=== PATIENT | male | born 1985 | race Hispanic/Latino ===

== ENCOUNTER 2018-09-23 21:38 | Emergency (ER) | payer SELFPAY ==
[2018-09-23] MEDS ORDERED: HYDROCODONE/APAP 10/325 TAB ONE (22:42)
--- NOTE | 2018-09-23 22:46 | ER ---
Nurse's Notes [facility] Name: Brandin John Jr Age: 32 yrs Sex: Male : 1985 Arrival Date: 09/23/2018 Time: 21:38 Bed 26 Private MD: Diagnosis: Contusion of lower back and pelvis-Tailbone Presentation: 09/23 21:45 Presenting complaint: Patient states: I fell on my tailbone on and the pain is la1 getting worse, pt ambulatory to triage. Transition of care: patient was not received from another setting of care. Onset of symptoms was September 23, 2018. Risk Assessment: Do you want to hurt yourself or someone else? Patient reports no desire to harm self or others. Initial Sepsis Screen: Does the patient meet any 2 criteria? No. Patient's initial sepsis screen is negative. Does the patient have a suspected source of infection? No. Patient's initial sepsis screen is negative. Care prior to arrival: None. 21:45 Method Of Arrival: Ambulatory la1 21:45 Acuity: KWESI 4 la1 Historical: - Allergies: 21:45 No Known Allergies; la1 - PMHx: 21:45 None; la1 - Immunization history:: Adult Immunizations up to date. - Social history:: Smoking status: Patient uses tobacco products, denies chronic smoking, but will smoke occasionally. - Ebola Screening: : No symptoms or risks identified at this time. Screenin:30 Abuse screen: Denies threats or abuse. Denies injuries from another. Nutritional rv screening: No deficits noted. Tuberculosis screening: No symptoms or risk factors identified. Fall Risk None identified. Assessment: 22:28 General: Appears in no apparent distress. uncomfortable, Behavior is calm, cooperative. rv Pain: Complains of pain in sacrum Pain does not radiate. Pain at worst was 8 out of 10 on a pain scale. Neuro: Level of Consciousness is awake, alert, obeys commands, Oriented to person, place, time, situation. Cardiovascular: Patient's skin is warm and dry. Respiratory: Airway is patent. GI: No signs and/or symptoms were reported involving the gastrointestinal system. : No signs and/or symptoms were reported regarding the genitourinary system. EENT: No signs and/or symptoms were reported regarding the EENT system. Derm: Skin is intact. Musculoskeletal: Reports pain in sacrum. Vital Signs: 21:46 BP 148 / 79; Pulse 88; Resp 16; Temp 97.4; Pulse Ox 98% on R/A; Weight 90.72 kg; Height la1 5 ft. 7 in. (170.18 cm); 22:54 BP 136 / 81; Pulse 81; Resp 18; Temp 97.7; Pulse Ox 99% ; rv 21:46 Body Mass Index 31.32 (90.72 kg, 170.18 cm) la1 ED Course: 21:38 Patient arrived in ED. as 21:45 Triage completed. la1 21:46 Dino Borden NP is PHCP. pm1 21:46 Arm band placed on right wrist. la1 21:47 Hadley Jimenez MD is Attending Physician. pm1 22:01 Kb Benavides RN is Primary Nurse. rv 22:24 Sacrum And Coccyx XRAY In Process Unspecified. EDMS 22:30 Patient has correct armband on for positive identification. Bed in low position. Call rv light in reach. Side rails up X 1. Adult w/ patient. Pulse ox on. NIBP on. 22:55 No provider procedures requiring assistance completed. Patient did not have IV access rv during this emergency room visit. Administered Medications: 22:28 Drug: [place] 10 mg-325 mg 1 tabs Route: PO; rv 22:54 Follow up: Response: Pain is decreased rv Outcome: 22:45 Discharge ordered by MD. pm1 22:55 Discharged to home ambulatory. rv 22:55 Condition: good 22:55 Discharge instructions given to patient, Instructed on discharge instructions, follow up and referral plans. medication usage, Demonstrated understanding of instructions, follow-up care, medications, Prescriptions given X 1. 22:55 Patient left the ED. rv Signatures: Dispatcher [employer] EDMS Carolyn Phillips Lee RN RN la1 Dino Borden, JULIAN ONE PIECE EXPANSION MAKER HAND pm1 Kb Benavides, EDUARDO RN rv
--- NOTE | 2018-09-23 22:46 | EDPHYS ---
Physician Documentation [facility] Name: Brandin John Jr Age: 32 yrs Sex: Male : 1985 Arrival Date: 09/23/2018 Time: 21:38 Bed 26 Private MD: ED Physician Hadley Jimenez HPI: 09/23 22:10 This 32 yrs old Male presents to ER via Ambulatory with complaints of Tailbone pm1 Pain. 22:10 The patient presents with pain that is acute. The symptoms are located in the coccyx pm1 area. The pain does not radiate. The problem was sustained during a fall, while walking. Onset: The symptoms/episode began/occurred yesterday. Modifying factors: The patient symptoms are alleviated by nothing, the patient symptoms are aggravated by movement, sitting. Associated signs and symptoms: Pertinent negatives: fever, incontinence, nausea, numbness, tingling, weakness. Severity of symptoms: in the emergency department the symptoms are unchanged. The patient has not experienced similar symptoms in the past. Patient walking up a stair and her slipped. Landed on his buttocks with resulting tailbone pain. Historical: - Allergies: 21:45 No Known Allergies; la1 - PMHx: 21:45 None; la1 - Immunization history:: Adult Immunizations up to date. - Social history:: Smoking status: Patient uses tobacco products, denies chronic smoking, but will smoke occasionally. - Ebola Screening: : No symptoms or risks identified at this time. ROS: 22:10 Constitutional: Negative for fever, chills, and weight loss, Eyes: Negative for injury, pm1 pain, redness, and discharge, ENT: Negative for injury, pain, and discharge, Neck: Negative for injury, pain, and swelling, Cardiovascular: Negative for chest pain, palpitations, and edema, Respiratory: Negative for shortness of breath, cough, wheezing, and pleuritic chest pain, Abdomen/GI: Negative for abdominal pain, nausea, vomiting, diarrhea, and constipation. 22:10 : Negative for injury, bleeding, discharge, and swelling, MS/Extremity: Negative for injury and deformity, Skin: Negative for injury, rash, and discoloration, Neuro: Negative for headache, weakness, numbness, tingling, and seizure. 22:10 Back: Positive for of the sacrum, pain, Negative for decreased range of motion. Exam: 22:10 Constitutional: This is a well developed, well nourished patient who is awake, alert, pm1 and in no acute distress. Head/Face: Normocephalic, atraumatic. Eyes: Pupils equal round and reactive to light, extra-ocular motions intact. Lids and lashes normal. Conjunctiva and sclera are non-icteric and not injected. Cornea within normal limits. Periorbital areas with no swelling, redness, or edema. ENT: Nares patent. No nasal discharge, no septal abnormalities noted. Tympanic membranes are normal and external auditory canals are clear. Oropharynx with no redness, swelling, or masses, exudates, or evidence of obstruction, uvula midline. Mucous membranes moist. Neck: Trachea midline, no thyromegaly or masses palpated, and no cervical lymphadenopathy. Supple, full range of motion without nuchal rigidity, or vertebral point tenderness. No Meningismus. Chest/axilla: Normal chest wall appearance and motion. Nontender with no deformity. No lesions are appreciated. Cardiovascular: Regular rate and rhythm with a normal S1 and S2. No gallops, murmurs, or rubs. Normal PMI, no JVD. No pulse deficits. Respiratory: Lungs have equal breath sounds bilaterally, clear to auscultation and percussion. No rales, rhonchi or wheezes noted. No increased work of breathing, no retractions or nasal flaring. Abdomen/GI: Soft, non-tender, with normal bowel sounds. No distension or tympany. No guarding or rebound. No evidence of tenderness throughout. 22:10 Skin: Warm, dry with normal turgor. Normal color with no rashes, no lesions, and no evidence of cellulitis. MS/ Extremity: Pulses equal, no cyanosis. Neurovascular intact. Full, normal range of motion. 22:10 Back: pain, that is mild, of the sacrum, normal spinal alignment noted. 22:10 Neuro: Orientation: is normal, Motor: is normal, moves all fours, Sensation: is normal, no obvious gross deficits. Vital Signs: 21:46 BP 148 / 79; Pulse 88; Resp 16; Temp 97.4; Pulse Ox 98% on R/A; Weight 90.72 kg; Height la1 5 ft. 7 in. (170.18 cm); 22:54 BP 136 / 81; Pulse 81; Resp 18; Temp 97.7; Pulse Ox 99% ; rv 21:46 Body Mass Index 31.32 (90.72 kg, 170.18 cm) la1 MDM: 22:09 Patient medically screened. pm1 22:12 Data reviewed: vital signs. Data interpreted: Pulse oximetry: on room air is 98 %. pm1 Interpretation: normal. 22:44 Counseling: I had a detailed discussion with the patient and/or guardian regarding: the pm1 historical points, exam findings, and any diagnostic results supporting the discharge/admit diagnosis, radiology results, the need for outpatient follow up, to return to the emergency department if symptoms worsen or persist or if there are any questions or concerns that arise at home. 09/23 22:06 Order name: Sacrum And Coccyx XRAY pm1 Administered Medications: 22:28 Drug: [place] 10 mg-325 mg 1 tabs Route: PO; rv 22:54 Follow up: Response: Pain is decreased rv Disposition: 09/24 04:28 Co-signature as Attending Physician, Hadley Jimenez MD. Disposition: 09/23/18 22:45 Discharged to Home. Impression: Contusion of lower back and pelvis - Tailbone. - Condition is Stable. - Discharge Instructions: Tailbone Injury. - Prescriptions for Tylenol- Codeine #3 300-30 mg Oral Tablet - take 2 tablets by ORAL route every 6 hours As needed; 20 tablet. Diclofenac Sodium 75 mg Oral Tablet Sustained Release - take 1 tablet by ORAL route 2 times per day; 30 tablet. - Medication Reconciliation Form, Thank You Letter, Antibiotic Education, Prescription Opioid Use, Work release form form. - Follow up: Emergency Department; When: As needed; Reason: Worsening of condition. Follow up: Private Physician; When: 2 - 3 days; Reason: Recheck today's complaints, Continuance of care, Re-evaluation by your physician. - Problem is new. - Symptoms have improved. Signatures: Dispatcher [employer] EDMS Ming Velasquez RN RN la1 Dino Borden, STEWARD/STEWARDESS CHIEF CARGO VESSEL STEWARD/STEWARDESS CHIEF CARGO VESSEL pm1 Hadley Jimenez MD MD Kb Benavides RN RN rv Corrections: (The following items were deleted from the chart) 09/23 22:55 22:45 09/23/2018 22:45 Discharged to Home. Impression: Contusion of lower back and rv pelvis - Tailbone. Condition is Stable. Forms are Medication Reconciliation Form, Thank You Letter, Antibiotic Education, Prescription Opioid Use. Follow up: Emergency Department; When: As needed; Reason: Worsening of condition. Follow up: Private Physician; When: 2 - 3 days; Reason: Recheck today's complaints, Continuance of care, Re-evaluation by your physician. Problem is new. Symptoms have improved. pm1
--- NOTE | 2018-09-24 10:53 | RAD REPORT ---
EXAM DESCRIPTION: RAD - Sacrum And Coccyx - 09/23/2018 10:23 pm CLINICAL HISTORY: PAIN Fall, tail bone pain COMPARISON: No comparisons FINDINGS: No acute fracture or subluxation seen. If pain persists, MR imaging would be suggested.
== END 2018-09-23 22:55 | disposition home or self-care (01) ==
LOC: ER 21:38
DX: S30.0XXA Contusion of lower back and pelvis, initial encounter (principal); W10.9XXA Fall (on) (from) unspecified stairs and steps, initial encounter; Z72.0 Tobacco use
CPT/HCPCS: 72220; 99284

== ENCOUNTER 2024-07-07 20:44 | Emergency (ER) | payer SELFPAY ==
[2024-07-07] MEDS ORDERED: LIDOCAINE 2% MPF 5 ML VIAL ONE (21:41)
--- NOTE | 2024-07-07 22:20 | RAD REPORT ---
Exam:Hand Right 3 View HISTORY: Right hand pain FINDINGS: 2.5 mm bony density lies adjacent to the fourth PIP joint. This has more of the appearance of being c hronic than acute. However, if the patient has point tenderness to suggest acuity then either CT or MRI would be recommended. Bony density adjacent to the ulnar styloid process appears chronic. No dislocation
--- NOTE | 2024-07-07 22:26 | ER ---
Nurse's Notes [facility] Name: Brandin John Jr Age: 38 yrs Sex: Male : 1985 Arrival Date: 07/07/2024 Time: 20:44 Bed 19 Private MD: Diagnosis: Laceration without foreign body of right hand Presentation: 07/07 20:52 Chief complaint: Patient states: fell last night with a bottle in his hand, the bottle me1 broke and cut the back of his right hand. Laceration noted. Coronavirus screen: Vaccine status: Patient reports being unvaccinated. Ebola Screen: No symptoms or risks identified at this time. Complicating Factors: There are no complicating factors for this patient. Initial Sepsis Screen: Does the patient meet any 2 criteria? HR > 90 bpm. Does the patient have a suspected source of infection? No. Patient's initial sepsis screen is negative. Risk Assessment: Do you want to hurt yourself or someone else? Patient reports no desire to harm self or others. Onset of symptoms was July 06, 2024. 20:52 Method Of Arrival: Ambulatory md1 20:52 Acuity: KWESI 4 me1 Historical: - Allergies: 20:53 No Known Allergies; me1 - Home Meds: 20:53 None [Active]; me1 - PMHx: 20:53 None; me1 - PSHx: 20:53 None; me1 - Immunization history:: Adult Immunizations unknown. - Infectious Disease History:: Denies. - Social history:: Smoking status: Patient denies any tobacco usage or history of. Screenin:58 [facility] ED Fall Risk Assessment (Adult) History of falling in the last 3 months, bm8 including since admission No falls in past 3 months (0 pts) Confusion or Disorientation No (0 pts) Intoxicated or Sedated No (0 pts) Impaired Gait No (0 pts) Mobility Assist Device Used No (0 pt) Altered Elimination No (0 pt) Score/Fall Risk Level 0 - 2 = Low Risk Oriented to surroundings, Maintained a safe environment, Educated pt \T\ family on fall prevention, incl call for assistance when getting out of bed, Assessed \T\ reinforced patient's understanding of fall precautions, Hourly rounding (assess needs \T\ fall precautionary measures) done, Used ambulatory aids as needed (educated on \T\ assisted with), Used gait belt as appropriate. Abuse screen: Denies threats or abuse. Nutritional screening: No deficits noted. Tuberculosis screening: No symptoms or risk factors identified. Assessment: 20:58 General: Appears in no apparent distress. comfortable, Behavior is calm, cooperative, bm8 appropriate for age. Pain: Complains of pain in dorsum of right hand Pain currently is 4 out of 10 on a pain scale. Neuro: No deficits noted. Cardiovascular: No deficits noted. Respiratory: No deficits noted. Derm: Wound noted dorsum of right hand Wound is 1.5 inch lac to posterior right hand Reports pain that is 4 out of 10 on a pain scale. Musculoskeletal: No deficits noted. Circulation, motion, and sensation intact. Capillary refill < 3 seconds, in bilateral fingers. 20:58 Injury Description: Laceration is contaminated, 2.6 to 7.5 cm long, not bleeding. bm8 22:01 Reassessment: Patient appears in no apparent distress at this time. No changes from bm8 previously documented assessment. Patient and/or family updated on plan of care and expected duration. Pain level reassessed. Patient is alert, oriented x 3, equal unlabored respirations, skin warm/dry/pink. 22:39 Reassessment: Patient appears in no apparent distress at this time. Patient and/or bm8 family updated on plan of care and expected duration. Pain level reassessed. Patient is alert, oriented x 3, equal unlabored respirations, skin warm/dry/pink. Patient denies pain at this time. Patient states feeling better. Patient states symptoms have improved. Vital Signs: 20:52 BP 152 / 96; Pulse 120; Resp 16; Temp 98.5; Pulse Ox 98% ; Weight 104.33 kg; Height 5 me1 ft. 7 in. ; Pain 2/10; 22:01 BP 140 / 98; Pulse 111; Resp 18; Temp 98.5; Pulse Ox 100% ; Pain 4/10; bm8 22:39 BP 141 / 92; Pulse 98; Resp 18; Temp 98.5; Pulse Ox 100% ; Pain 0/10; bm8 20:52 Body Mass Index 36.02 (104.33 kg, 170.18 cm) me1 20:52 Pain Scale: Adult me1 22:01 Pain Scale: Adult bm8 22:39 Pain Scale: Adult bm8 [place] Coma Score: 20:58 Eye Response: spontaneous(4). Motor Response: obeys commands(6). Verbal Response: bm8 oriented(5). Total: 15. 22:01 Eye Response: spontaneous(4). Motor Response: obeys commands(6). Verbal Response: bm8 oriented(5). Total: 15. 22:39 Eye Response: spontaneous(4). Motor Response: obeys commands(6). Verbal Response: bm8 oriented(5). Total: 15. ED Course: 20:47 Patient arrived in ED. rg4 20:53 Triage completed. me1 20:53 Arm band placed on Patient placed in an exam room. me1 20:58 Merrill Clarke, RN is Primary Nurse. bm8 20:58 Patient has correct armband on for positive identification. Provided Education on: post bm8 er care. Client placed on continuous cardiac and pulse oximetry monitoring. NIBP monitoring applied. groundwater monitoring technician on. Pulse ox on. NIBP on. Door closed. Noise minimized. Warm blanket given. Pillow given. Verbal reassurance given. Head of bed elevated. 20:58 Patient did not have IV access during this emergency room visit. Patient maintains SpO2 bm8 saturation greater than 95% on room air. 21:22 Rud[facility] Berkowitz FNP-C [facility]. dr5 21:22 Chelsi Huang MD is Attending Physician. dr5 22:09 Hand Right 3 View XRAY In Process Unspecified. EDMS 22:15 Assist provider with laceration repair on right hand and dorsum of right hand that was bm8 between 2.6 to 7.5 cm using sutures. Set up tray. Performed by Ruddy LIRIANO Dressed with Neosporin, Patient tolerated well. Administered Medications: 22:15 Drug: Lidocaine-Epinephrine Infiltration -2 % (1:100,000) 10 ml Infiltration once; to bm8 bedside {Note: ADMINISTERED BY PROVIDER.} Route: Infiltration; Site: wound; 22:39 Drug: Boostrix Tdap IM 0.5 ml IM once; as a single dose Route: IM; Site: right deltoid; bm8 22:40 Follow up: Response: No adverse reaction; Medication Administered at Departure bm8 Medication: 20:58 Vaccine Information Statement (VIS) provided today. Questions and/or concerns bm8 addressed. VIS edition date: October 31, 2020. Outcome: 22:26 Discharge ordered by . raj 22:42 Discharged to home ambulatory, bm8 22:42 Condition: stable 22:42 Discharge instructions given to patient, family, Instructed on discharge instructions, follow up and referral plans. no drinking with medication, no driving heavy equipment, medication usage, safety practices, Demonstrated understanding of instructions, follow-up care, Prescriptions given X 1, :43 Patient left the ED. bm8 Signatures: Dispatcher [employer] Niki Patricio rg4 Alise Taylor, RN RN me1 Merrill Clarke, RN RN bm8 Ruddy Berkowitz, OFFICE EQUIPMENT TECHNICIAN-C OFFICE EQUIPMENT TECHNICIAN-[id number]
--- NOTE | 2024-07-07 22:27 | EDPHYS ---
Physician Documentation [facility] Name: Brandin John Jr Age: 38 yrs Sex: Male : 1985 Arrival Date: 07/07/2024 Time: 20:44 Bed 19 Private MD: ED Physician Chelsi Huang HPI: 07/07 22:35 This 38 yrs old Male presents to ER via Ambulatory with complaints of dr5 Laceration To Hand. 22:35 This 38 yrs old Male presents to ER via Ambulatory with complaints of dr5 Laceration To Hand. 22:35 The laceration(s) is(are) located on the dorsum of right hand. Patient is a 38-year-old dr5 male with no Iain history coming in with laceration to right hand that occurred yesterday night around 9 PM. Patient reports that he was intoxicated and did not realize that he had cut in self until he woke up this morning. Unknown last tetanus immunization. Historical: - Allergies: 20:53 No Known Allergies; me1 - Home Meds: 20:53 None [Active]; me1 - PMHx: 20:53 None; me1 - PSHx: 20:53 None; me1 - Immunization history:: Adult Immunizations unknown. - Infectious Disease History:: Denies. - Social history:: Smoking status: Patient denies any tobacco usage or history of. ROS: 22:35 Constitutional: as per hpi dr5 Exam: 22:35 Constitutional: This is a well developed, well nourished patient who is awake, alert, dr5 and in no acute distress. Head/Face: Normocephalic, atraumatic. Eyes: Pupils equal round and reactive to light, extra-ocular motions intact. Lids and lashes normal. Conjunctiva and sclera are non-icteric and not injected. Cornea within normal limits. Periorbital areas with no swelling, redness, or edema. Neck: Trachea midline, no thyromegaly or masses palpated, and no cervical lymphadenopathy. Supple, full range of motion without nuchal rigidity, or vertebral point tenderness. No Meningismus. Chest/axilla: Normal chest wall appearance and motion. Nontender with no deformity. No lesions are appreciated. Cardiovascular: Regular rate and rhythm with a normal S1 and S2. Normal PMI, no JVD. No pulse deficits. Respiratory: Lungs have equal breath sounds bilaterally, clear to auscultation. No rales, rhonchi or wheezes noted. No increased work of breathing, no retractions or nasal flaring. Abdomen/GI: Soft, non-tender, non-distended Back: No spinal tenderness. No costovertebral tenderness. Full range of motion. Neuro: Awake and alert, GCS 15, oriented to person, place, time, and situation. Cranial nerves II-XII grossly intact. Motor strength 5/5 in all extremities. Sensory grossly intact. Cerebellar exam normal. Normal gait. 22:35 Skin: injury, laceration(s), the wound is approximately 4 cm(s), with a depth of .5 cm(s), of the dorsum of right hand, 22:35 Musculoskeletal/extremity: Extremities: all appear grossly normal, with no appreciated dr5 pain with palpation, ROM: no acute changes, intact in all extremities, Circulation is intact in all extremities. Sensation intact. Vital Signs: 20:52 BP 152 / 96; Pulse 120; Resp 16; Temp 98.5; Pulse Ox 98% ; Weight 104.33 kg; Height 5 me1 ft. 7 in. ; Pain 2/10; 22:01 BP 140 / 98; Pulse 111; Resp 18; Temp 98.5; Pulse Ox 100% ; Pain 4/10; bm8 22:39 BP 141 / 92; Pulse 98; Resp 18; Temp 98.5; Pulse Ox 100% ; Pain 0/10; bm8 20:52 Body Mass Index 36.02 (104.33 kg, 170.18 cm) me1 20:52 Pain Scale: Adult me1 22:01 Pain Scale: Adult bm8 22:39 Pain Scale: Adult bm8 Ashutosh Coma Score: 20:58 Eye Response: spontaneous(4). Motor Response: obeys commands(6). Verbal Response: bm8 oriented(5). Total: 15. 22:01 Eye Response: spontaneous(4). Motor Response: obeys commands(6). Verbal Response: bm8 oriented(5). Total: 15. 22:39 Eye Response: spontaneous(4). Motor Response: obeys commands(6). Verbal Response: bm8 oriented(5). Total: 15. Laceration: 22:35 Wound Repair of 4cm ( 1.6in ) subcutaneous laceration to dorsum of right hand. Linear dr5 shaped.. Distal neuro/vascular/tendon intact. Anesthesia: Local anesthetic administered with 2 mls of 1% lidocaine. Wound prep: Moderate cleansing by me. Skin closed with 7 4-0 Prolene using simple sutures and sterile technique. Dressed with non-adherent dressing. Patient tolerated well. MDM: 21:22 Medical Screening Exam initiated dr5 22:35 Differential diagnosis: superficial laceration, tendon injury, vascular injury. Data dr5 reviewed: vital signs, nurses notes. 22:38 I considered the following discharge prescriptions or medication management in the [facility] emergency department Medications were administered in the Emergency Department. See MAR. Care significantly affected by the following Social Determinants of Health: Poor access to healthcare and/or lack of insurance, Poor access to transportation, Problems related to employment. Counseling: I had a detailed discussion with the patient and/or guardian regarding the historical points, exam findings, and any diagnostic results supporting the discharge/admit diagnosis, the presence of at least one elevated blood pressure reading (>120/80) during this emergency department visit, the need for outpatient follow up, for definitive care, a family practitioner, to return to the emergency department if symptoms worsen or persist or if there are any questions or concerns that arise at home. ED course: 7 sutures placed in right hand. Tetanus updated. Will have patient return in 7 to 10 days for suture removal. Keflex given due to wound being open for almost 24 hours. Wound was cleaned, irrigated and well-approximated. 07/07 21:29 Order name: Hand Right 3 View XRAY; Complete Time: 22:25 dr5 07/07 21:37 Order name: Dressing - Wound; Complete Time: 21:38 dr5 07/07 21:37 Order name: Setup Suture Tray; Complete Time: 21:38 dr5 Administered Medications: 22:15 Drug: Lidocaine-Epinephrine Infiltration -2 % (1:100,000) 10 ml Infiltration once; to bm8 bedside {Note: ADMINISTERED BY PROVIDER.} Route: Infiltration; Site: wound; 22:39 Drug: Boostrix Tdap IM 0.5 ml IM once; as a single dose Route: IM; Site: right deltoid; bm8 22:40 Follow up: Response: No adverse reaction; Medication Administered at Departure 8 Disposition Summary: 07/07/24 22:26 Discharge Ordered Notes: Location: Home dr5 Condition: Stable dr5 Diagnosis - Laceration without foreign body of right hand dr5 Followup: dr5 - With: Emergency Department - When: As needed - Reason: Worsening of condition Followup: dr5 - With: Private Physician - When: 7 - 10 days - Reason: Staple/Suture removal Discharge Instructions: - Discharge Summary Sheet dr5 - Laceration Care, Adult dr5 Forms: - Medication Reconciliation Form dr5 - Antibiotic Education dr5 - Patient Portal Instructions dr5 - Leadership Thank You Letter dr5 Prescriptions: - Cephalexin 500 mg Oral Capsule - take 1 capsule ORAL route every 12 hours for 10 days; 20 capsule; Refills: 0, dr5 Product Selection Permitted Signatures: Dispatcher [employer] EDAlise Maki RN RN me1 Merrill Clarke RN RN bm8 Ruddy Berkowitz, [employer]-C [employer]-Cdr5
[2024-07-07] MEDS ORDERED: TDAP (DIPHTH,PERTUSS(ACELL),TET VAC) 0.5 ML VIAL IMVAC ONE (22:35)
[2024-07-07 23:02] VITALS: TEMP 98.5
[2024-07-07 23:04] VITALS: O2SAT 100
[2024-07-07 23:05] VITALS: BP 141/92
== END 2024-07-07 22:43 | disposition home or self-care (01) ==
LOC: ER 20:44
DX: S61.411A Laceration without foreign body of right hand, initial encounter (principal)
CPT/HCPCS: 12002; 90715; 96372; 99285; J2003